=== PATIENT | female | born 2000 | race Hispanic/Latino ===

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

== ENCOUNTER 2020-05-21 20:39 | Observation (INO) | payer OTHER ==
[~2020-05-21] VITALS: Ht 157.5 cm; Wt 74.8 kg
[2020-05-21] MEDS ORDERED: DICYCLOMINE HCL 20 MG/2 ML VIAL IM ONE (21:00)
[2020-05-21] MEDS ORDERED: PANTOPRAZOLE 40 MG 10ML VIAL IV STA (21:00)
[2020-05-21 21:10] LABS: BASOPHILS % 0.3 % (0.0-1.0); EOSINOPHILS # (AUTO) 0.3 (0.0-0.4); HEMATOCRIT 43.1 % (34.2-44.1); HEMOGLOBIN 14.1 g/dL (12.0-16.0); LYMPHOCYTES # (AUTO) 5.1 (1.0-3.2); LYMPHOCYTES % 39.5 % (18.0-39.1); MEAN CORPUSCULAR HEMOGLOBIN 28.8 pg (28-32); MEAN CORPUSCULAR HGB CONC 32.7 g/dL (31-35); MONOCYTES # (AUTO) 0.8 (0.2-0.8); MONOCYTES % 6.3 % (4.4-11.3); NEUTROPHILS # (AUTO) 6.6 (2.1-6.9); NEUTROPHILS % 51.6 % (38.7-80.0); PLATELET COUNT 294 x10e3/uL (140-360); RED CELL DISTRIBUTION WIDTH 13.2 % (11.7-14.4)
[2020-05-21 21:27] LABS: BILIRUBIN,URINE NEGATIVE (NEGATIVE); CLARITY,URINE SL CLOUDY (CLEAR); COLOR,URINE YELLOW (YELLOW); KETONES,URINE NEGATIVE (NEGATIVE); LEUKOCYTE ESTERASE ,URINE NEGATIVE (NEGATIVE); NITRITE,URINE NEGATIVE (NEGATIVE); PROTEIN,URINE DIPSTICK NEGATIVE (NEGATIVE); URINE UROBILINOGEN 0.2 mg/dL (0.2 - 1)
[2020-05-21 21:28] LABS: ALANINE AMINOTRANSFERASE 18 IU/L (0-55); ALBUMIN 4.7 g/dL (3.5-5.0); ALBUMIN/GLOBULIN RATIO 1.6 (0.8-2.0); ALKALINE PHOSPHATASE 92 IU/L (40-150); ANION GAP 13.1 mmol/L (8-16); BLOOD UREA NITROGEN 15 mg/dL (7-26); BUN/CREATININE RATIO 17 (6-25); CARBON DIOXIDE 24 mmol/L (22-29); CHLORIDE 106 mmol/L (98-107); CREATININE, SERUM 0.86 mg/dL (0.57-1.11); EST GLOMERULAR FILTRATION RATE > 60 ML/MIN (60-); GLUCOSE 88 mg/dL (74-118); POTASSIUM 4.1 mmol/L (3.5-5.1); SODIUM 139 mmol/L (136-145)
[2020-05-21 21:34] LABS: BACTERIA,URINE FEW /HPF; EPITHELIAL CELLS,URINE MODERATE /LPF
[2020-05-21 21:37] LABS: AMYLASE 51 U/L (25-125); LIPASE 318 U/L (8-78)
--- NOTE | 2020-05-21 22:15 | Emergency Department Note ---
History of Present Illnes History of Present Illness Chief Complaint: Abdominal Complaints History of Present Illness This is a 19 year old female INTERMITTENT RIGHT FLANK PAIN X1 WEEK; PT SEEN FOR RIGHT FLANK PAIN X1 YEAR AGO AND PT STATES, "WAS TOLD IT WOULD HAVE TO COME OUT EVENTUALLY." PT ATE PORK CHOPS AND MAC/CHEESE THIS EVENING; STATES PAIN 7/10 AT THIS TIME; V/S/S; NAD NOTED; . Historian: Patient Arrival Mode: Car Onset (how long ago): hour(s) (2) Location: UPPER ABD Quality: PAIN Radiation: Reports back Severity: moderate Onset quality: sudden Duration (how long): hour(s) (2) Timing of current episode: intermittent Progression: unchanged Chronicity: recurrent Context: Denies recent illness, Denies recent surgery, Denies trauma/injury Relieving factors: none Exacerbating factors: eating Associated symptoms: Reports denies other symptoms Past Medical/Family History Physician Review I have reviewed the patient's past medical and family history. Any updates have been documented here. Past Medical History Recent Fever: No Clinical Suspicion of Infectio: No New/Unexplained Change in Ment: No Other Medical History: Ovarian cyst Past Surgical History: None Social History Smoking Cessation: Never Smoker Counseling Performed: No Alcohol Use: None Any Illegal Drug Use: No Family History Family history of heart diseas: No Other Last Tetanus: +utd Any Pre-Existing Lines (PICC,: No Review of Systems Review of Systems Constitutional: Reports no symptoms EENTM: Reports no symptoms Cardiovascular: Reports no symptoms Respiratory: Reports no symptoms Gastrointestinal: Reports as per HPI Genitourinary: Reports no symptoms Musculoskeletal: Reports no symptoms Integumentary: Reports no symptoms Neurological: Reports no symptoms Psychological: Reports no symptoms Endocrine: Reports no symptoms Hematological/Lymphatic: Reports no symptoms Physical Exam Related Data Allergies: Coded Allergies: No Known Allergies (Unverified , 01/12/17) Triage Vital Signs Vital Signs Date Time Temp Pulse Resp B/P (MAP) Pulse Ox O2 Delivery O2 Flow Rate FiO2 05/21/20 20:55 99.3 88 17 150/84 98 Room Air Vital signs reviewed: Yes Physical Exam CONSTITUTIONAL Constitutional: Present well-developed, Present well-nourished; Absent distressed HENT HENT: Present normocephalic, Present atraumatic, Present oropharynx clear/moist, Present nose normal HENT L/R: Present left ext ear normal, Present right ext ear normal EYES Eyes: Reports PERRL, Reports conjunctivae normal NECK Neck: Present ROM normal PULMONARY Pulmonary: Present effort normal, Present breath sounds normal CARDIOVASCULAR Cardiovascular: Present regular rhythm, Present heart sounds normal, Present capillary refill normal, Present normal rate GASTROINTESTINAL Abdominal: Present soft, Present bowel sounds normal, Present tender (TENDER EPIGASTRIC AND RUQ) GENITOURINARY Genitourinary: Present exam deferred SKIN Skin: Present warm, Present dry MUSCULOSKELETAL Musculoskeletal: Present ROM normal NEUROLOGICAL Neurological: Present alert, Present oriented x 3, Present no gross motor or sensory deficits PSYCHOLOGICAL Psychological: Present mood/affect normal, Present judgement normal Results Laboratory Result Diagram: 05/21/20 2100 05/21/202099 Laboratory Laboratory Tests Test 05/21/20 21:00 White Blood Count 12.87 x10e3/uL (4.8-10.8) Red Blood Count 4.90 x10e6/uL (3.6-5.1) Hemoglobin 14.1 g/dL (12.0-16.0) Hematocrit 43.1 % (34.2-44.1) Mean Corpuscular Volume 88.0 fL (81-99) Mean Corpuscular Hemoglobin 28.8 pg (28-32) Mean Corpuscular Hemoglobin Concent 32.7 g/dL (31-35) Red Cell Distribution Width 13.2 % (11.7-14.4) Platelet Count 294 x10e3/uL (140-360) Neutrophils (%) (Auto) 51.6 % (38.7-80.0) Lymphocytes (%) (Auto) 39.5 % (18.0-39.1) Monocytes (%) (Auto) 6.3 % (4.4-11.3) Eosinophils (%) (Auto) 2.0 % (0.0-6.0) Basophils (%) (Auto) 0.3 % (0.0-1.0) Neutrophils # (Auto) 6.6 (2.1-6.9) Lymphocytes # (Auto) 5.1 (1.0-3.2) Monocytes # (Auto) 0.8 (0.2-0.8) Eosinophils # (Auto) 0.3 (0.0-0.4) Basophils # (Auto) 0.0 (0.0-0.1) Absolute Immature Granulocyte (auto 0.04 x10e3/uL (0-0.1) Urine Color Yellow (YELLOW) Urine Clarity Sl cloudy (CLEAR) Urine pH 6 (5 - 7) Urine Specific [place] 1.030 (1.010-1.025) Urine Protein Negative (NEGATIVE) Urine Glucose (UA) Negative (NEGATIVE) Urine Ketones Negative (NEGATIVE) Urine Blood Negative (NEGATIVE) Urine Nitrite Negative (NEGATIVE) Urine Bilirubin Negative (NEGATIVE) Urine Urobilinogen 0.2 mg/dL (0.2 - 1) Urine Leukocyte Esterase Negative (NEGATIVE) Urine RBC None /HPF (0-5) Urine WBC None /HPF (0-5) Urine Epithelial Cells Moderate /LPF (NONE) Urine Bacteria Few /HPF (NONE) Sodium Level 139 mmol/L (136-145) Potassium Level 4.1 mmol/L (3.5-5.1) Chloride Level 106 mmol/L (98-107) Carbon Dioxide Level 24 mmol/L (22-29) Anion Gap 13.1 mmol/L (8-16) Blood Urea Nitrogen 15 mg/dL (7-26) Creatinine 0.86 mg/dL (0.57-1.11) Estimat Glomerular Filtration Rate > 60 ML/MIN (60-) BUN/Creatinine Ratio 17 (6-25) Glucose Level 88 mg/dL (74-118) Calcium Level 9.0 mg/dL (8.4-10.2) Total Bilirubin 0.4 mg/dL (0.2-1.2) Aspartate Amino Transf (AST/SGOT) 17 IU/L (5-34) Alanine Aminotransferase (ALT/SGPT) 18 IU/L (0-55) Alkaline Phosphatase 92 IU/L (40-150) Total Protein 7.6 g/dL (6.5-8.1) Albumin 4.7 g/dL (3.5-5.0) Globulin 2.9 g/dL (2.3-3.5) Albumin/Globulin Ratio 1.6 (0.8-2.0) Amylase Level 51 U/L (25-125) Lipase 318 U/L (8-78) Human Chorionic Gonadotropin, Qual Negative (NEGATIVE) Lab results reviewed: Yes Imaging Imaging results reviewed: Yes Impressions Procedure: [id number] US/US GALLBLADDER Exam Date: 05/21/20 Exam Time: 2201 REPORT STATUS: Signed EXAM: Right Upper Quadrant Ultrasound INDICATION: RUQ PAIN COMPARISON: None. TECHNIQUE: Transverse and longitudinal images of the right upper abdomen were obtained. FINDINGS: Liver: Size: 13.7 cm in the right midclavicular line, normal Appearance: Normal echogenicity, smooth contour Mass: No focal masses Gallbladder: Stones/Sludge: Minimal sludge. No discrete stones. Wall: 0.2 cm Appearance: No pericholecystic fluid or hydrops. Sonographic Lopez's Sign: Negative Bile Ducts: Intrahepatic Ducts: No dilatation Extrahepatic Ducts: Common bile duct measures 0.2 cm, no dilatation Pancreas: Visualized portions of the pancreatic head, neck and proximal body are normal. Right Kidney: Size: 10.1 cm Echogenicity: Normal Parenchymal thickness: Normal Collecting system: No hydronephrosis Stones: None Cyst/Mass: None Vessels: Aorta: Visualized portions are normal Inferior Vena Cava: Visualized portions are normal Main portal vein: Normal size and flow direction. Free Fluid: No ascites or pleural effusion IMPRESSION: Minimal gallbladder sludge. No discrete gallstones. No evidence of acute cholecystitis. Signed by: Tika Gomez MD on 05/21/2020 10:59 PM Dictated By: TIKA GOMEZ MD 58 Transcribed By: VALENCIA on 05/21/202258 COPY TO: SHAMIR RODRIGUEZ MD~ Assessment & Plan Medical Decision Making MDM PT WITH UPPER ABD PAIN AFTER EATING AND REPORTED H/O GALLBLADDER PROBLEMS CBC, CMP, AMYLASE, LIPASE, GALL BLADDER ULTRASOUND, UA ORDERED TO EVAL FOR PANCREATITIS, UTI, ELEVATED LFT'S, GALLSTONES, CHOLECYSTITIS PROTONIX 40 MG IV ORDERED BENTYL 20 MG IM ORDERED I SPOKE WITH DR VILLELA AND LEFT A MESSAGE FOR DR JOHNSON Assessment & Plan Final Impression: (1) Pancreatitis (2) Sludge in gallbladder Depart Disposition: ADMITTED Last Vital Signs Date Time Temp Pulse Resp B/P (MAP) Pulse Ox O2 Delivery O2 Flow Rate FiO2 05/21/20 20:55 99.3 88 17 150/84 98 Room Air Home Meds No Active Prescriptions or Reported Meds Medications in the ED Pantoprazole Sodium 40 mg NOW STAT IV Last administered on 05/21/20at 21:29; Admin Dose 40 MG; Start 05/21/20 at 21:00; Stop 05/21/20 at 21:11; Status DC Dicyclomine HCl 20 mg ONCE ONCE IM Last administered on 05/21/20at 21:29; Admin Dose 20 MG; Start 05/21/20 at 21:00; Stop 05/21/20 at 21:02; Status DC SHAMIR RODRIGUEZ MD May 21, 2020 22:15
--- OUTSIDE RECORDS SUMMARY | 2020-05-21 22:27 | XMS REPORT | Continuity of Care Document ---
Author Author [facility] t Organization [facility] Address [address] [place] [address] Phone Unavailable Care Team Providers [facility] Nurse Name Role Phone NO, PCP PCP Unavailable KARMEN RAM APRN Attphys Unavailable Deirdre RODRIGUEZ Attphys Unavailable Payers Payer Name Policy Type Policy Number Effective Date Expiration Date Karl Lawler o [id number] 2018 00:00:00 LUIS Jiménez [facility] Problems Condition Name Condition Details Condition Category Status Onset Date Resolution Date Last Treatment Date Treating Clinician Comments Source History of depression History of depression Problem Resolved [facility] History of COVID-19 virus infection History of COVID-19 virus in fection Problem Resolved [facility] Acute bronchitis due to infection Acute bronchitis due to infect ion Problem Active [facility] Anxiety and depression Anxiety and depression Problem Active [facility] Encounter for control Encounter for control Problem Active [facility] BMI 33.0-33.9,adult BMI 33.0-33.9,adult Problem Active [facility] Allergies, Adverse Reactions, Alerts Allergy Name Allergy Type Status Severity Reaction(s) Onset Date Inacti ve Date Treating Clinician Comments Source NO KNOWN CONTRAST MEDIA ALLERG DA Active U 2008-06-30 00: 00:00 [facility] NO KNOWN OTHER ALLERGIES DA Active U 2008-06-30 00:00:00 [facility] No Known Drug Allergies DA Active U 2008-06-30 00:00:00 [facility] No Known Food Allergies DA Active U 2008-06-30 00:00:00 [facility] Family History Family Member Diagnosis Comments Start Date Stop Date Source Grandmother Family history of diabetes mellitus [facility] Grandmother Family history of High cholesterol [facility] Grandmother Family history of hypertension [facility] Father Family history of alcoholism [facility] Social History Smoking Status Start Date Stop Date Source Never smoked tobacco (finding) U [facility] Medications Ordered Medication Name Filled Medication Name Start Date Stop Da te Current Medication? Ordering Clinician Indication Dosage Frequency Signature (SIG) Comments Components Source Drospirenone-Ethinyl Estradiol 3-0.02 MG Oral Tablet D rospirenone-Ethinyl Estradiol 3-0.02 MG Oral Tablet 2020-03-06 00:00:00 Yes ZHEN RAM GRAIN DRIER 1 QD TAKE 1 TABLET DAILY. [facility] busPIRone HCl - 7.5 MG Oral Tablet busPIRone HCl - 7.5 MG Or al Tablet 2020-03-06 00:00:00 Yes KARMEN RAM GRAIN DRIER 1 TAKE 1 TABLET B EDTIME [facility] Escitalopram Oxalate 10 MG Oral Tablet Escitalopram Oxalate 10 MG Oral Tablet 2020-02-21 00:00:00 Yes KARMEN RAM GRAIN DRIER 1 QD TAKE 1 TABLET DAILY. [facility] Vital Signs Vital Name Observation Time Observation Value Comments Source Systolic blood pressure 2020-03-06 12:19:00 132 mm[Hg] Loca tion: LUE; Position: Sitting [facility] Diastolic blood pressure 2020-03-06 12:19:00 78 mm[Hg] Loc ation: LUE; Position: Sitting [facility] Body height 2020-03-06 12:19:00 62 [in_us] [facility] Weight 2020-03-06 12:19:00 185 [lb_av] [facility] Body mass index (BMI) [Ratio] 2020-03-06 12:19:00 33.84 kg/m2 [facility] Body temperature 2020-03-06 12:19:00 98.3 [degF] Method: Temporal [facility] Heart Rate 2020-03-06 12:19:00 78 /min [facility] Respiratory rate 2020-03-06 12:19:00 16 /min [facility] Systolic blood pressure 2020-02-21 10:11:00 129 mm[Hg] Loca tion: LUE; Position: Sitting [facility] Diastolic blood pressure 2020-02-21 10:11:00 85 mm[Hg] Loc ation: LUE; Position: Sitting [facility] Body height 2020-02-21 10:11:00 62 [in_us] [facility] Weight 2020-02-21 10:11:00 188 [lb_av] [facility] Body mass index (BMI) [Ratio] 2020-02-21 10:11:00 34.39 kg/m2 [facility] Body temperature 2020-02-21 10:11:00 98.4 [degF] Method: Temporal [facility] Heart Rate 2020-02-21 10:11:00 89 /min [facility] Respiratory rate 2020-02-21 10:11:00 16 /min [facility] Procedures Procedure Date / Time Performed Performing Clinician Sour e [QL] LIPID PANEL 2020-02-21 00:00:00 [facility] [QL] CBC (INCLUDES DIFF/PLT) 2020-02-21 00:00:00 [facility] [QL] CMP W/EGFR 2020-02-21 00:00:00 [facility] [QL] TSH, 3RD GENERATION W/REFLEX TO FT4 2020-02-21 00:00:00 [facility] [QL] URINALYSIS, COMPLETE 2020-02-21 00:00:00 [facility] 2 views [id number] 2020-02-21 00:00:00 [facility] Encounters Start Date/Time End Date/Time Encounter Type Admission Type [facility] Facility Care Department Encounter ID Source 2020-03-06 12:30:00 2020-03-06 12:30:00 Appointment; IGNACIO RAM APRN HOANG, CHRISTINA, APRN [facility] [id number] [facility] 2020-02-21 10:00:00 2020-02-21 10:00:00 Appointment; RAMIGNACIO APRN HOANG, CHRISTINA, APRN [facility] [address] [id number] [address] [facility] 2019-03-31 20:06:00 2019-04-01 00:22:00 Departed Emergency Room 1 SHAMIR RODRIGUEZ [facility] [id number] [facility] Results Test Description Test Time Test Comments Results Result Comments Source [QL] LIPID PANEL 2020-02-27 13:06:00 Test Item CHOLESTEROL, TOTAL; Above High Threshold (test code = 2093-3) 192 m g/dl <170 HDL CHOLESTEROL; Normal (test code = 2085-9) 46 mg/dl >45 N TRIGLYCERIDES; Above High Threshold (test code = 2571-8) 94 mg/dl <90 LDL-CHOLESTEROL; Above High Threshold (test code = 40791-9) 126 {MG/DL CODI} <110 LDL-C is now calculated felix casarez the Yvan-Fadumo calculation, which is a validated novel method providing better accuracy than the Friedewald equation in the estimation of LDL-C. Yvan SS et al. MARGA. 2013;310(19): 7813-2955 (http://education.EzFlop - A First of Its Kind Flip Flop.nediyor.com/faq/THM371) CHOL/HDLC RATIO (test code = CHOL/HDLC RATIO) 4.2 {CALC} <5.0 N NON HDL CHOLESTEROL (test code = NON HDL CHOLESTEROL) 146 {MG/DL C AL} <120 For patients with diabetes plus 1 major ASCVD risk factor, treating to a non-HDL-C goal of <100 mg/dL (LDL-C of <70 mg/dL) is considered a therapeutic option. [facility][QL] CMP [id number] 13:06:00* Test Item Value Reference Range Interpretation Comments GLUCOSE; Normal (test code = 1547-9) 82 mg/dl 65-99 N Fasting reference interval UREA NITROGEN (BUN) (test code = UREA NITROGEN (BUN)) 14 mg/dl 7-20 N CREATININE (test code = CREATININE) 0.79 mg/dl 0.50-1.00 N eGFR NON-AFR. TUNISIAN (test code = eGFR NON-AFR. TUNISIAN) 109 {ML/MIN/1.7} > OR = 60 N eGFR (test code = eGFR ) 12 6 {ML/MIN/1.7} > OR = 60 N BUN/CREATININE RATIO (test code = BUN/CREATININE RATIO) NOT APPLICA BLE 6-22 SODIUM (test code = SODIUM) 139 mmol/L 135-146 N POTASSIUM (test code = POTASSIUM) 4.5 mmol/L 3.8-5.1 N CHLORIDE (test code = CHLORIDE) 103 mmol/L 98-110 N CARBON DIOXIDE (test code = CARBON DIOXIDE) 27 mmol/L 20-32 N CALCIUM (test code = CALCIUM) 9.7 mg/dl 8.9-10.4 N PROTEIN, TOTAL (test code = PROTEIN, TOTAL) 7.2 g/dl 6.3-8.2 N ALBUMIN (test code = ALBUMIN) 4.4 g/dl 3.6-5.1 N GLOBULIN (test code = GLOBULIN) 2.8 {G/DL CALC} 2.0-3.8 N ALBUMIN/GLOBULIN RATIO (test code = ALBUMIN/GLOBULIN RATIO) 1.6 {CALC} 1.0-2.5 N BILIRUBIN, TOTAL; Normal (test code = 39057-4) 0.5 mg/dl 0.2-1.1 N ALKALINE PHOSPHATASE (test code = ALKALINE PHOSPHATASE) 80 u/l 36-128 N AST; Normal (test code = 1916-6) 15 u/l 12-32 N ALT; Normal (test code = 1742-6) 15 u/l 5-32 N [facility][] URINALYSIS, [id number] 13:06:00* Test Item Value Reference Range Interpretation Comments COLOR; Normal (test code = 5778-6) YELLOW YELLOW N APPEARANCE (test code = APPEARANCE) CLEAR CLEAR N SPECIFIC GRAVITY; Normal (test code = 2965-2) 1.021 1.001-1. 035 N PH; Normal (test code = 2756-5) 7.0 5.0-8.0 N GLUCOSE; Normal (test code = 1547-9) NEGATIVE NEGATIVE N BILIRUBIN; Normal (test code = 04022-9) NEGATIVE NEGATIVE N KETONES; Normal (test code = 28109-1) NEGATIVE NEGATIVE N OCCULT BLOOD; Normal (test code = 67773-6) NEGATIVE NEGATIVE N PROTEIN; Normal (test code = 19254-8) NEGATIVE NEGATIVE N NITRITE; Normal (test code = 92402-9) NEGATIVE NEGATIVE N LEUKOCYTE ESTERASE (test code = LEUKOCYTE ESTERASE) NEGATIVE NE GATIVE N WBC; Normal (test code = 6690-2) 0-5 < OR = 5 N RBC; Normal (test code = 789-8) NONE SEEN < OR = 2 N SQUAMOUS EPITHELIAL CELLS; Abnormal (test code = 88169-2) > OR = 28 < OR = 5 A BACTERIA; Normal (test code = 630-4) NONE SEEN NONE SEEN N HYALINE CAST; Abnormal (test code = 64753-3) 0-5 NONE SEEN A [facility][QL] CBC (INCLUDES DIFF/PLT)2020-02-27 13:06:00* Test Item Value Reference Range Interpretation Comments WHITE BLOOD CELL COUNT (test code = WHITE BLOOD CELL COUNT) 10.5 {Thousand/u} 3.8-10.8 N RED BLOOD CELL COUNT (test code = RED BLOOD CELL COUNT) 4.92 {Million/uL} 3.80-5.10 N HEMOGLOBIN; Normal (test code = 37175-9) 14.3 g/dl 11.7-15.5 N HEMATOCRIT; Normal (test code = 4544-3) 42.3 % 35.0-45.0 N MCV; Normal (test code = 787-2) 86.0 fL 80.0-100.0 N MCHC; Normal (test code = 80054-8) 33.8 g/dl 32.0-36.0 N RDW; Normal (test code = 788-0) 12.7 % 11.0-15.0 N PLATELET COUNT; Normal (test code = 777-3) 303 {Thousand/u} 140-400 N MPV; Normal (test code = 52125-6) 10.4 fL 7.5-12.5 N ABSOLUTE NEUTROPHILS (test code = ABSOLUTE NEUTROPHILS) 6878 {cells/uL} 5560-9960 N ABSOLUTE LYMPHOCYTES (test code = ABSOLUTE LYMPHOCYTES) 3077 {cells/uL} 850-3900 N ABSOLUTE MONOCYTES (test code = ABSOLUTE MONOCYTES) 410 {cells/uL} 200-950 N ABSOLUTE EOSINOPHILS (test code = ABSOLUTE EOSINOPHILS) 105 {cells/ uL} 15-500 N ABSOLUTE BASOPHILS (test code = ABSOLUTE BASOPHILS) 32 {cells/uL} 0 -200 N NEUTROPHILS (test code = NEUTROPHILS) 65.5 % N LYMPHOCYTES (test code = LYMPHOCYTES) 29.3 % N MONOCYTES; Normal (test code = 36395-9) 3.9 % N EOSINOPHILS; Normal (test code = 32466-6) 1.0 % N BASOPHILS; Normal (test code = 22852-4) 0.3 % N [facility][QL] TSH, 3RD GENERATION W/REFLEX TO [id number] 13:06:00* Test Item Value Reference Range Interpretation Comments TSH, 3RD GENERATION W/REFLEX TO FT4 (tabatha t code = TSH, 3RD GENERATION W/REFLEX TO FT4) 2.76 {MIU/L} N Reference Range 1-19 Years 0.50- 4.30 Ranges First trimester 0.26-2.66 Second trimester 0.55-2.73 Third trimester 0.43-2.91 [facility] views [id number] 12:49:00EXAM: XR CHEST 2 VIEWSDATE: 02/27/2020 12:47 CDTINDICATION: - J20.8 Acute bronchitis due to other specified organismsCOMPARISON: None.TECHNIQUE: PA and lateral chest radiographs.FINDINGS:Lines, tubes and hardware: None.Lungs and pleura: The lungs are clear. The costophrenic sulci are sharp withouteffusion. No pneumot horax is identified.Heart and mediastinum: The heart size is normal. The mediast inal contours arenormal.Bones, soft tissues: No acute abnormality.IMPRESSION: 1. No acute abnormality.--Read by: Brett Beebe MDDictated Date/time: 02/27/20 13:17Electronically Signed by: Brett Beebe MD 02/26/2013:18[facility]- ABDOM[facility] COMPLETE 2019-05-24 11:44:00 Name: MARY GLEZ [facility] : 2000 Age/S: 18 / F [address] Unit #: [id number] Loc: [place] [address] Phys: Taj Hardin MD Acct: [id number] Dis Date: Status: REG CLI PHONE #: [phone] Exam Date: 05/24/2019 1026 FAX #: [phone] Reason: UPPER ABD PAIN EXAMS: CPT CODE: [id number] US ABDOMEN COMPLETE 41142 REASON FOR EXAM: UPPER ABD PAIN EXAM ORDER DATE: 05/24/2019 9:57 AM Attending MLandon.: Taj Hardin MD PROCEDURE: - US ABDOMEN COMPLETE Technique: Grayscale and color Doppler images of the abdomen. Comparison study: None FINDINGS: Aorta and IVC: Patent and grossly normal in caliber. Liver: Size: 13.1 cm craniocaudally Parenchyma and contour: Smooth contour. Normal echogenicity. Cysts and/or masses: None. Intrahepatic bile ducts: No intrahepatic biliary ductal dilation Common bile duct: 2.2 mm in diameter. No echogenic filling defects in visualized duct. Gallbladder: Stones/sludge: No intraluminal stones or sludge. Wall: 6.9 mm in thickness. No discontinuity. No polyps. No pericholecystic fluid. No hyperemia. Sonographic Lopez's sign: Negative Portal vein: Portal vein caliber is within normal limits. Portal vein is patent with hepatopetal flow. Pancreas: Incompletely visualized. However the visualized portions are grossly within normal limits. Right kidney: parenchyma echogenicity: Normal echogenicity size: 11.0 x 4.3 x 4.2 cm stones: none cysts/masses: none hydronephrosis: none PAGE 1 Signed Report (CONTINUED) Name: MARY GLEZ [facility] : 2000 Age/S: 18 / F [address] Unit #: [id number] Loc: [place] [address] Phys: Taj Hardin MD Acct: [id number] Dis Date: Status: REG CLI PHONE #: [phone] Exam Date: 05/24/2019 1025 FAX #: [phone] Reason: UPPER ABD PAIN EXAMS: CPT CODE: [id number] US ABDOMEN COMPLETE 52695 <Continued> Left kidney: parenchyma echogenicity: Normal echogenicity s ize: 10.9 x 5.2 x 5.6 cm stones: none cysts/masses: none hydr onephrosis: none Spleen: size: 11.6 x 4.4 x 4.[address] sts/masses: Parenchyma is sonographically unremarkable. Ascites/p leural effusions: None IMPRESSION: No sonogra phic evidence of acute cholecystitis (negative sonographic Lopez's sign ). The gallbladder is contracted with marked wall thickening which may b e seen with chronic cholecystitis. Nuclear medicine scan can provide fur ther assessment if clinically warranted. Remainder of the scanned portio n of the abdomen is sonographically unremarkable. Electronic ally Signed by Calvin Baron MD on 05/24/2019 at 1144 Repo rted and signed by: Calvin Baron MD CC: Taj Dia Technologist: Carina Valiente RDMS Trnscb Date/Time: 05/24/2019 (2738) [email or web address] Orig Print D/T: S: 05/24/2019 (3557) Probe: PAGE 2 Signed Report ANKLE 3 + VIEWS [id number] 00:21:00 [place] [address] Patient Name: MARY GLEZ MR #: [id number] : 2000 Age/Sex: 18/F Req #: [id number] Adm Physician: Ordered by: SHAMIR RODRIGUEZ MD Report #: [id number] Location: ER Room/Bed: Procedure: [id number] DX/ANKLE 3 + VIEWS RIGHT Exam Date: 03/31/19 Exam Time: 2319 REPORT STATUS: Si gned ANKLE 3 + VIEWS RIGHT - 3 views HISTORY: Pain COMPARISON: None a vailable. FINDINGS: Bones: No acute displaced fracture. Osseou s alignment is within normal limits. Joints: The joint spaces are well-ma intained. Soft tissues: The soft tissues appear unremarkable. IMP RESSION: No acute radiographic abnormality. Signed by: Dr. Wander Chavez MD on 04/01/2019 12:22 AM Dictated By: WANDER CHAVEZ MD 002 Transcribed By: VALENCIA on 9 21 COPY TO: SHAMIR RODRIGUEZ MD FOOT RIGHT COMPLETE 2019-03-31 22:47:00 [place] [address] Patient Name: MARY GLEZ MR #: [id number] : 2000 Age/Sex: 18/F Req #: [id number] Adm Physician: Ordered by: SHAMIR RODRIGUEZ MD Report #: [id number] Location: ER Room/Bed: Procedure: [id number] DX/FOOT RIGHT COMPLETE Exam Date: 03/31/19 Exam Time: 2149 REPORT STATUS: Sign ed FOOT RIGHT COMPLETE - 3 views HISTORY: Pain COMPARISON: None avail able. FINDINGS: Bones: No acute displaced fracture. Osseous al ignment is within normal limits. Joints: The joint spaces are well-mainta ined. Soft tissues: The soft tissues appear unremarkable. IMPRESS ION: No acute radiographic abnormality. Signed by: Dr. Wander Chavez MD on 03/31/2019 10:48 PM Dictated By: WANDER CHAVEZ MD Electronically Sign ed By: WANDER CHAVEZ MD on 03/31/19 2248 Transcribed By: VALENCIA on 03/31/19 48 COPY TO: SHAMIR RDORIGUEZ MD
--- NOTE | 2020-05-21 23:03 | Diagnostic Imaging Report ---
EXAM: Right Upper Quadrant Ultrasound INDICATION: RUQ PAIN COMPARISON: None. TECHNIQUE: Transverse and longitudinal images of the right upper abdomen were obtained. FINDINGS: Liver: Size: 13.7 cm in the right midclavicular line, normal Appearance: Normal echogenicity, smooth contour Mass: No focal masses Gallbladder: Stones/Sludge: Minimal sludge. No discrete stones. Wall: 0.2 cm Appearance: No pericholecystic fluid or hydrops. Sonographic Lopez's Sign: Negative Bile Ducts: Intrahepatic Ducts: No dilatation Extrahepatic Ducts: Common bile duct measures 0.2 cm, no dilatation Pancreas: Visualized portions of the pancreatic head, neck and proximal body are normal. Right Kidney: Size: 10.1 cm Echogenicity: Normal Parenchymal thickness: Normal Collecting system: No hydronephrosis Stones: None Cyst/Mass: None Vessels: Aorta: Visualized portions are normal Inferior Vena Cava: Visualized portions are normal Main portal vein: Normal size and flow direction. Free Fluid: No ascites or pleural effusion IMPRESSION: Minimal gallbladder sludge. No discrete gallstones. No evidence of acute cholecystitis. Signed by: Napoleon Grissom MD on 05/21/2020 10:59 PM
[2020-05-21] MEDS ORDERED: SODIUM CHLORIDE 0.9% 1000ML 2,000 ML ONE (23:27)
[2020-05-21] MEDS ORDERED: MORPHINE SULFATE 2 MG/ML SYR 1ML IV PRN (23:30)
[2020-05-21] MEDS ORDERED: SODIUM CHLORIDE 0.9% 1000ML 1,000 ML IV ONE (23:30)
[2020-05-21] MEDS ORDERED: ONDANSETRON HCL INJ 2MG/ML 2ML 2 MG/ML VIAL IV PRN (23:30)
[2020-05-22] MEDS: SODIUM CHLORIDE 0.9% 1000ML 1,000 ML IV SCH ×2 (00:14→04:24)
[2020-05-22 05:35] LABS: BASOPHILS % 0.3 % (0.0-1.0); EOSINOPHILS # (AUTO) 0.2 (0.0-0.4); EOSINOPHILS % 2.1 % (0.0-6.0); HEMATOCRIT 36.2 % (34.2-44.1); LYMPHOCYTES # (AUTO) 4.4 (1.0-3.2); LYMPHOCYTES % 40.8 % (18.0-39.1); MEAN CORPUSCULAR HEMOGLOBIN 28.7 pg (28-32); MEAN CORPUSCULAR HGB CONC 33.1 g/dL (31-35); MEAN CORPUSCULAR VOLUME 86.6 fL (81-99); MONOCYTES # (AUTO) 0.7 (0.2-0.8); MONOCYTES % 6.1 % (4.4-11.3); NEUTROPHILS # (AUTO) 5.5 (2.1-6.9); NEUTROPHILS % 50.3 % (38.7-80.0); PLATELET COUNT 244 x10e3/uL (140-360); RED BLOOD COUNT 4.18 x10e6/uL (3.6-5.1); RED CELL DISTRIBUTION WIDTH 13.2 % (11.7-14.4)
--- OUTSIDE RECORDS SUMMARY | 2020-05-22 05:40 | XMS REPORT | Continuity of Care Document ---
Author Author [facility] t Organization [facility] Address [address] [place] [address] Phone Unavailable Care Team Providers Care Chemic Mangler Name Role Phone NO, PCP PCP Unavailable Deirdre RODRIGUEZ Attphys Unavailable KARMEN RAM APRN Attphys Unavailable Payers Payer Name Policy Type Policy Number Effective Date Expiration Date Karl Lawler o [id number] 2018 00:00:00 LUIS Jiménez [facility] Problems Condition Name Condition Details Condition Category Status Onset Date Resolution Date Last Treatment Date Treating Clinician Comments Source History of depression History of depression Problem Resolved [facility] History of COVID-19 virus infection History of COVID-19 virus in fection Problem Resolved [facility] Acute bronchitis due to infection Acute bronchitis due to infect ion Problem Active [facility] Anxiety and depression Anxiety and depression Problem Active [facility] Encounter for control Encounter for control Problem Active [facility] BMI 33.0-33.9,adult BMI 33.0-33.9,adult Problem Active [facility] Allergies, Adverse Reactions, Alerts Allergy Name Allergy Type Status Severity Reaction(s) Onset Date Inacti ve Date Treating Clinician Comments Source NO KNOWN CONTRAST MEDIA ALLERG DA Active U 2008-06-30 00: 00:00 [facility] NO KNOWN OTHER ALLERGIES DA Active U 2008-06-30 00:00:00 [facility] No Known Drug Allergies DA Active U 2008-06-30 00:00:00 [facility] No Known Food Allergies DA Active U 2008-06-30 00:00:00 [facility] Family History Family Member Diagnosis Comments Start Date Stop Date Source Grandmother Family history of diabetes mellitus [facility] Grandmother Family history of High cholesterol [facility] Grandmother Family history of hypertension [facility] Father Family history of alcoholism [facility] Social History Smoking Status Start Date Stop Date Source Never smoked tobacco (finding) U [facility] Medications Ordered Medication Name Filled Medication Name Start Date Stop Da te Current Medication? Ordering Clinician Indication Dosage Frequency Signature (SIG) Comments Components Source Drospirenone-Ethinyl Estradiol 3-0.02 MG Oral Tablet D rospirenone-Ethinyl Estradiol 3-0.02 MG Oral Tablet 2020-03-06 00:00:00 Yes ZHEN RAM FIELD INSTALLATION TECHNICIAN 1 QD TAKE 1 TABLET DAILY. [facility] busPIRone HCl - 7.5 MG Oral Tablet busPIRone HCl - 7.5 MG Or al Tablet 2020-03-06 00:00:00 Yes KARMEN RAM FIELD INSTALLATION TECHNICIAN 1 TAKE 1 TABLET B EDTIME [facility] Escitalopram Oxalate 10 MG Oral Tablet Escitalopram Oxalate 10 MG Oral Tablet 2020-02-21 00:00:00 Yes KARMEN RAM FIELD INSTALLATION TECHNICIAN 1 QD TAKE 1 TABLET DAILY. [facility] Vital Signs Vital Name Observation Time Observation Value Comments Source Systolic blood pressure 2020-03-06 12:19:00 132 mm[Hg] Loca tion: LUE; Position: Sitting [facility] Diastolic blood pressure 2020-03-06 12:19:00 78 mm[Hg] Loc ation: LUE; Position: Sitting [facility] Body height 2020-03-06 12:19:00 62 [in_us] [facility] Weight 2020-03-06 12:19:00 185 [lb_av] [facility] Body mass index (BMI) [Ratio] 2020-03-06 12:19:00 33.84 kg/m2 [facility] Body temperature 2020-03-06 12:19:00 98.3 [degF] Method: Temporal [facility] Heart Rate 2020-03-06 12:19:00 78 /min [facility] Respiratory rate 2020-03-06 12:19:00 16 /min [facility] Systolic blood pressure 2020-02-21 10:11:00 129 mm[Hg] Loca tion: LUE; Position: Sitting [facility] Diastolic blood pressure 2020-02-21 10:11:00 85 mm[Hg] Loc ation: LUE; Position: Sitting [facility] Body height 2020-02-21 10:11:00 62 [in_us] [facility] Weight 2020-02-21 10:11:00 188 [lb_av] [facility] Body mass index (BMI) [Ratio] 2020-02-21 10:11:00 34.39 kg/m2 [facility] Body temperature 2020-02-21 10:11:00 98.4 [degF] Method: Temporal [facility] Heart Rate 2020-02-21 10:11:00 89 /min [facility] Respiratory rate 2020-02-21 10:11:00 16 /min [facility] Procedures Procedure Date / Time Performed Performing Clinician Sour e [QL] LIPID PANEL 2020-02-21 00:00:00 [facility] [QL] CBC (INCLUDES DIFF/PLT) 2020-02-21 00:00:00 [facility] [QL] CMP W/EGFR 2020-02-21 00:00:00 [facility] [QL] TSH, 3RD GENERATION W/REFLEX TO FT4 2020-02-21 00:00:00 [facility] [QL] URINALYSIS, COMPLETE 2020-02-21 [facility]:00:[facility] views [id number] 2020-02-21 00:00[facility]00 [facility] En[facility] Start Date/Time End Date/Time Encounter Type Admission Type [facility] Care Facility Care Department Encounter ID Source 2020-03-06 12:30:00 2020-03-06 12:30:00 Appointment; IGNACIO RAM APRN HOANG, CHRISTINA, APRN [facility] [id number] [facility] 2020-02-21 10:00:00 2020-02-21 10:00:00 Appointment; RAM, ANITRA RAMIREZ CHRISTINA, APRN [facility], [address] [id number] [facility] 2019-03-31 20:06:00 2019-04-01 00:22:00 Departed Emergency Room [address] [facility] [id number] [facility] Results Test Description Test Time Test Comments Results Result Comments Source US GALLBLADDER 2020-05-21 22:56:00 [facility] [address] [address] Patient Name: MARY GLEZ MR #: [id number] : 2000 Age/Sex: 19/F Req #: [id number] Adm Physician: Ordered by: SHAMIR RODRIGUEZ MD Report #: [id number] Location: ER Room/Bed: Procedure: [id number] US/US GALLBLADDER Exam Date: 05/21/20 Exam Time: 2201 REPORT STATUS: Signed EXAM: Right Upper Quadrant Ultrasound INDICATION: RUQ PAIN COMPARISON: None. TECHNIQUE: Transverse and longitudinal images of the right upper abdomen were obtained. FINDINGS: Liver: Size: 13.7 cm in the right midclavicular line, normal Appearance: Normal echogenicity, smooth contour Mass: No focal masses Gallbladder: Stones/Sludge: Minimal sludge. No discrete stones. Wall: 0.2 cm Appearance: No pericholecystic fluid or hydrops. Sonographic Lopez's Sign: Negative Bile Ducts: Intrahepatic Ducts: No dilatation Extrahepatic Ducts: Common bile duct measures 0.2 cm, no dilatation Pancreas: Visualized portions of the pancreatic head, neck and proximal body are normal. Right Kidney: Size: 10.1 cm Echogenicity: Normal Parenchymal thickness: Normal Collecting system: No hydronephrosis Stones: None Cyst/Mass: None Vessels: Aorta: Visualized portions are normal Inferior Vena Cava: Visualized portions are normal Main portal vein: Normal size and flow direction. Free Fluid: No ascites or pleural effusion IMPRESSION: Minimal gallbladder sludge. No discrete gallstones. No evidence of acute cholecystitis. Signed by: Tika Grissom MD on 05/21/2020 10:59 PM Dictated By: TIKA GRISSOM MD 58 Transcribed By: VALENCIA on 05/21/202258 COPY TO: SHAMIR RODRIGUEZ MD [QL] LIPID PANEL 2020-02-27 13:06:00 Test Item CHOLESTEROL, TOTAL; Above High Threshold (test code = 2093-3) 192 m g/dl <170 HDL CHOLESTEROL; Normal (test code = 2085-9) 46 mg/dl >45 N TRIGLYCERIDES; Above High Threshold (test code = 2571-8) 94 mg/dl <90 LDL-CHOLESTEROL; Above High Threshold (test code = 81769-9) 126 {MG/DL CODI} <110 LDL-C is now calculated felix casarez the Yvan-Thorne calculation, which is a validated novel method providing better accuracy than the Friedewald equation in the estimation of LDL-C. Yvan SS et al. MARGA. 2013;310(19): 0211-4305 (http://education.Jumia.com/faq/JKV287) CHOL/HDLC RATIO (test code = CHOL/HDLC RATIO) 4.2 {CALC} <5.0 N NON HDL CHOLESTEROL (test code = NON HDL CHOLESTEROL) 146 {MG/DL C AL} <120 For patients with diabetes plus 1 major ASCVD risk factor, treating to a non-HDL-C goal of <100 mg/dL (LDL-C of <70 mg/dL) is considered a therapeutic option. [facility][QL] CMP [id number] 13:06:00* Test Item Value Reference Range Interpretation Comments GLUCOSE; Normal (test code = 1547-9) 82 mg/dl 65-99 N Fasting reference interval UREA NITROGEN (BUN) (test code = UREA NITROGEN (BUN)) 14 mg/dl 7-20 N CREATININE (test code = CREATININE) 0.79 mg/dl 0.50-1.00 N eGFR NON-AFR. AFGHAN (test code = eGFR NON-AFR. AFGHAN) 109 {ML/MIN/1.7} > OR = 60 N [...] N BILIRUBIN, TOTAL; Normal (test code = 61371-1) 0.5 mg/dl 0.2-1.1 N ALKALINE PHOSPHATASE (test code = ALKALINE PHOSPHATASE) 80 u/l 36-128 N AST; Normal (test code = 1916-6) 15 u/l 12-32 N ALT; Normal (test code = 1742-6) 15 u/l 5-32 N [facility][] URINALYSIS, [id number] 13:06:00* Test Item Value Reference Range Interpretation Comments COLOR; Normal (test code = 5778-6) YELLOW YELLOW N APPEARANCE (test code = APPEARANCE) CLEAR CLEAR N SPECIFIC GRAVITY; Normal (test code = 2965-2) 1.021 1.001-1. 035 N PH; Normal (test code = 2756-5) 7.0 5.0-8.0 N GLUCOSE; Normal (test code = 1547-9) NEGATIVE NEGATIVE N BILIRUBIN; Normal (test code = 78416-8) NEGATIVE NEGATIVE N KETONES; Normal (test code = 93462-6) NEGATIVE NEGATIVE N OCCULT BLOOD; Normal (test code = 79775-7) NEGATIVE NEGATIVE N PROTEIN; Normal (test code = 63544-0) NEGATIVE NEGATIVE N NITRITE; Normal (test code = 49021-2) NEGATIVE NEGATIVE N LEUKOCYTE ESTERASE (test code = LEUKOCYTE ESTERASE) NEGATIVE NE GATIVE N WBC; Normal (test code = 6690-2) 0-5 < OR = 5 N RBC; Normal (test code = 789-8) NONE SEEN < OR = 2 N SQUAMOUS EPITHELIAL CELLS; Abnormal (test code = 71294-4) > OR = 28 < OR = 5 A BACTERIA; Normal (test code = 630-4) NONE SEEN NONE SEEN N HYALINE CAST; Abnormal (test code = 97458-7) 0-5 NONE SEEN A [facility][QL] CBC (INCLUDES DIFF/PLT)2020-02-27 13:06:00* Test Item Value Reference Range Interpretation Comments WHITE BLOOD CELL COUNT (test code = WHITE BLOOD CELL COUNT) 10.5 {Thousand/u} 3.8-10.8 N RED BLOOD CELL COUNT (test code = RED BLOOD CELL COUNT) 4.92 {Million/uL} 3.80-5.10 N HEMOGLOBIN; Normal (test code = 27452-0) 14.3 g/dl 11.7-15.5 N HEMATOCRIT; Normal (test code = 4544-3) 42.3 % 35.0-45.0 N MCV; Normal (test code = 787-2) 86.0 fL 80.0-100.0 N MCHC; Normal (test code = 41712-5) 33.8 g/dl 32.0-36.0 N RDW; Normal (test code = 788-0) 12.7 % 11.0-15.0 N PLATELET COUNT; Normal (test code = 777-3) 303 {Thousand/u} 140-400 N MPV; Normal (test code = 73628-5) 10.4 fL 7.5-12.5 N ABSOLUTE NEUTROPHILS (test code = ABSOLUTE NEUTROPHILS) 6878 {cells/uL} 4444-0484 N ABSOLUTE LYMPHOCYTES (test code = ABSOLUTE [...] % N MONOCYTES; Normal (test code = 42897-1) 3.9 % N EOSINOPHILS; Normal (test code = 91537-0) 1.0 % N BASOPHILS; Normal (test code = 51912-7) 0.3 % N [facility][QL] TSH, 3RD GENERATION W/REFLEX TO [id number] 13:06:00* Test Item Value Reference Range Interpretation Comments TSH, 3RD GENERATION W/REFLEX TO FT4 (tabatha t code = TSH, 3RD GENERATION W/REFLEX TO FT4) 2.76 {MIU/L} N Reference Range 1-19 Years 0.50- 4.30 Ranges First trimester 0.26-2.66 Second trimester 0.55-2.73 Third trimester 0.43-2.91 [facility] views [id number] 12:49:00EXAM: XR CHEST 2 VIEWSDATE: 02/27/2020 12:47 [...] 13:17Electronically Signed by: Brett Beebe MD 02/26/2013:18[facility] COMPLETE 2019-05-24 11:44:00 Name: MARY GLEZ [facility] : 2000 Age/S: 18 / F [address] [facility] Unit #: [id number] Loc: [place] [address] Phys: Taj Hardin MD Acct: [id number] Dis Date: Status: REG CLI PHONE #: [phone] Exam Date: 05/24/2019 1025 FAX #: [phone] Reason: UPPER ABD PAIN EXAMS: CPT CODE: [id number] US ABDOMEN COMPLETE 69722 REASON FOR EXAM: UPPER ABD PAIN EXAM ORDER DATE: 05/24/2019 9:57 AM Attending M.D.: Taj Hardin MD PROCEDURE: - US ABDOMEN [...] 1 Signed Report (CONTINUED) Name: MARY GLEZ [facility] : 2000 Age/S: 18 / F [address] [facility] Unit #: [id number] Loc: [place] [address] Phys: Taj Hardin MD Acct: [id number] Dis Date: Status: REG CLI PHONE #: [phone] Exam Date: 05/24/2019 1025 FAX #: [phone] Reason: UPPER ABD PAIN EXAMS: CPT CODE: [id number] US ABDOMEN COMPLETE 41106 <Continued> Left kidney: parenchyma echogenicity: Normal echogenicity [...] Technologist: Carina Valiente RDMS Trnscb Date/Time: 05/24/2019 (6840) [email or web address] Orig Print D/T: S: 05/24/2019 (9752) Probe: PAGE 2 Signed Report ANKLE 3 + VIEWS [id number] 00:21:[address] [address] Patient Name: MARY GLEZ MR #: [id number] : 2000 Age/Sex: 18/F Req #: [id number] Adm Physician: Ordered by: SHAMIR RODRIGUEZ MD Report #: [id number] Location: ER Room/Bed: Procedure: [id number] DX/ANKLE 3 + VIEWS RIGHT Exam Date: 03/31/19 Exam Time: 2320 REPORT STATUS: Si gned ANKLE 3 + [...] 12:22 AM Dictated By: WANDER CHAVEZ MD 0022 Transcribed By: VALENCIA on 9 0022 COPY TO: SHAMIR RODRIGUEZ MD FOOT RIGHT COMPLETE 2019-03-31 22:47:00 [address] [address] Patient Name: MARY GLEZ MR #: [id number] : 2000 Age/Sex: 18/F Req #: [id number] Adm Physician: Ordered by: SHAMIR RODRIGUEZ MD Report #: [id number] Location: ER Room/Bed: Procedure: [id number] DX/FOOT RIGHT COMPLETE Exam Date: 03/31/19 Exam Time: 2150 REPORT STATUS: Sign ed FOOT RIGHT COMPLETE [...] 03/31/19 2248 Transcribed By: VALENCIA on 03/31/19 22 48 COPY TO: SHAMIR RODRIGUEZ MD
--- NOTE | 2020-05-22 06:09 | NUR ---
H&P cc: abdominal pain HPI: 19yoF, PCP , developed abdominal pain, found to have acute pancreatitis and gall bladder sludge. No etoh; Pain ongoing for 1 week; Some nausea and diarrhea for 2 days; no fever. PMH: obesity, HLD, CHON PSHx: none ALlergies; see emr FH/SH: single; no cigs; no etoh. MEds; see MAR ROS: no CHRISTY/cp/sob/skin rash/dizziness/vision changs/confusion/diarrhea/focal limb weakness v/s revd PE tired appearing anicteric ns1s2 mod bs soft; EQUIVOCAL GONSALEZ'S SIGN; RUQ tender no edema/skin dry flat affect a&ox3; labs/meds revd A/P: 19yoF Acute pancreatitis- IVF Gall bladder disease/sludge- Equivocal Gonsalez's sign; check MRCP Obesity- screen for DM; reduce portion sizes BMI 30 - as above Prop: scd; pepcid dipso: f/u GI; f/u MRCP KAZ VILLELA MD, PHD.
[2020-05-22 06:10] LABS: ALANINE AMINOTRANSFERASE 14 IU/L (0-55); ALBUMIN 3.6 g/dL (3.5-5.0); ALBUMIN/GLOBULIN RATIO 1.7 (0.8-2.0); ALKALINE PHOSPHATASE 72 IU/L (40-150); AMYLASE 42 U/L (25-125); ANION GAP 10.2 mmol/L (8-16); BLOOD UREA NITROGEN 11 mg/dL (7-26); BUN/CREATININE RATIO 14 (6-25); CALCIUM 7.8 mg/dL (8.4-10.2); CARBON DIOXIDE 23 mmol/L (22-29); CHLORIDE 110 mmol/L (98-107); EST GLOMERULAR FILTRATION RATE > 60 ML/MIN (60-); GLUCOSE 84 mg/dL (74-118); LIPASE 24 U/L (8-78); POTASSIUM 4.2 mmol/L (3.5-5.1); SODIUM 139 mmol/L (136-145)
[2020-05-22 06:34] LABS: CHOL/HDL RATIO 4.2 (3.0-3.6)
--- NOTE | 2020-05-22 07:30 | NUR ---
CALLED ERICK IN RADIOLOGY FOR ETA OF MRCP. ASKED IF WE COULD GET PT DONE [place] IF POSSIBLE.
[2020-05-22] MEDS ORDERED: PANTOPRAZOLE 40 MG 10ML VIAL IV SCH (09:00)
--- NOTE | 2020-05-22 09:54 | Diagnostic Imaging Report ---
MRI MRCP WO HISTORY: ^PANCREATITIS COMPARISON: None. TECHNIQUE: MRI of the abdomen with exam tailored to evaluate the biliary tree and the pancreas was performed without gadolinium contrast. Multiplanar, multisequence images, including heavily T2-weighted MRCP sequences were obtained. FINDINGS: Hepatobiliary Findings: Bile ducts: Normal in caliber with no intraluminal filling defects. No strictures or dilated intra- or extrahepatic bile ducts. Liver: Mild signal loss on opposed phased imaging compatible with mild steatosis Gallbladder: Unremarkable. Pancreas: Unremarkable. No peripancreatic edema or fluid collections. No pancreatic ductal dilation Additional Findings: Lung bases: Unremarkable. Spleen: Unremarkable Adrenals: Unremarkable Kidneys and ureters: Unremarkable. Bowel: Unremarkable. Lymph nodes: Unremarkable. Peritoneum: Trace free fluid in the pelvis, within physiologic normal limits. No peripancreatic fluid collections or any free fluid in the upper abdomen Vessels: Unremarkable Abdominal wall: Trace dependent body wall edema. Bones: Unremarkable. IMPRESSION: No gallstones, no biliary ductal dilation, and no evidence for pancreatitis on this noncontrast exam. Mild hepatic steatosis. Signed by: Gerardo Briceño MD on 05/22/2020 9:51 AM
[2020-05-22] MEDS ORDERED: LEXAPRO10 MG PO (10:15)
[2020-05-22] MEDS ORDERED: BUSPIRONE HCL5 MG PO (10:15)
== END 2020-05-22 10:25 | disposition home or self-care (01) ==
LOC: ER 21:01 → INTOOBSV 05-22 05:37 → ERHOLD 05-22 05:37
PROVIDERS: ADMIT Internal Medicine; ATTEND Internal Medicine
DX: K85.90 Acute pancreatitis without necrosis or infection, unspecified (principal); K82.9 Disease of gallbladder, unspecified; E66.9 Obesity, unspecified; Z68.30 Body mass index [BMI] 30.0-30.9, adult; Z11.59 Encounter for screening for other viral diseases
CPT/HCPCS: 36415 ×2; 74181; 76705; 80053 ×2; 80061; 81001; 82150 ×2; 83036; 83690 ×2; 84702; 85025 ×2; 99284; C9113; G0378; J0500; J7030 ×2; U0002

== ENCOUNTER 2021-09-16 18:46 | Emergency (ER) | payer OTHER ==
[~2021-09-16] VITALS: Ht 157.5 cm; Wt 74.8 kg
[~2021-09-16 18:46] MED LIST: BUSPIRONE HCL5 MG PO; LEXAPRO10 MG PO
[2021-09-16 20:33] LABS: CLARITY,URINE SL CLOUDY (CLEAR); COLOR,URINE YELLOW (YELLOW); KETONES,URINE NEGATIVE (NEGATIVE); LEUKOCYTE ESTERASE ,URINE NEGATIVE (NEGATIVE); NITRITE,URINE NEGATIVE (NEGATIVE); PROTEIN,URINE DIPSTICK NEGATIVE (NEGATIVE); URINE UROBILINOGEN 0.2 mg/dL (0.2 - 1)
[2021-09-16 20:47] LABS: BACTERIA,URINE MODERATE /HPF; EPITHELIAL CELLS,URINE MODERATE /LPF
== END 2021-09-16 22:30 | disposition left against medical advice (07) ==
LOC: ER 20:17
DX: Z53.21 Procedure and treatment not carried out due to patient leaving prior to being seen by health care provider (principal)
CPT/HCPCS: 81001; 81025

== ENCOUNTER 2022-07-25 11:37 | Emergency (ER) | payer OTHER ==
[~2022-07-25] VITALS: Ht 157.5 cm; Wt 96.2 kg
[2022-07-25] MEDS ORDERED: SODIUM CHLORIDE 0.9% 1000ML 1,000 ML IV STA (11:42)
[2022-07-25] MEDS ORDERED: ONDANSETRON HCL INJ 2MG/ML 2ML 2 MG/ML VIAL IV STA (11:42)
[2022-07-25] MEDS ORDERED: Morphine 4mg INJECTION 4 MG/ML INJ IV STA (11:42)
[2022-07-25 12:01] LABS: BASOPHILS % 0.2 % (0.0-1.0); EOSINOPHILS # (AUTO) 0.1 (0.0-0.4); EOSINOPHILS % 1.1 % (0.0-6.0); HEMATOCRIT 40.9 % (34.2-44.1); HEMOGLOBIN 12.9 g/dL (12.0-16.0); LYMPHOCYTES # (AUTO) 2.5 (1.0-3.2); LYMPHOCYTES % 26.5 % (18.0-39.1); MEAN CORPUSCULAR HEMOGLOBIN 26.8 pg (28-32); MEAN CORPUSCULAR HGB CONC 31.5 g/dL (31-35); MONOCYTES # (AUTO) 0.5 (0.2-0.8); MONOCYTES % 5.3 % (4.4-11.3); NEUTROPHILS # (AUTO) 6.3 (2.1-6.9); NEUTROPHILS % 66.6 % (38.7-80.0); PLATELET COUNT 294 x10e3/uL (140-360); RED BLOOD COUNT 4.81 x10e6/uL (3.6-5.1)
[2022-07-25 12:28] LABS: ALANINE AMINOTRANSFERASE 20 IU/L (0-55); ALBUMIN 4.2 g/dL (3.5-5.0); ALBUMIN/GLOBULIN RATIO 1.4 (0.8-2.0); ALKALINE PHOSPHATASE 96 IU/L (40-150); ANION GAP 14.9 mmol/L (8-16); BLOOD UREA NITROGEN 12 mg/dL (7-26); BUN/CREATININE RATIO 12 (6-25); CALCIUM 9.2 mg/dL (8.4-10.2); CARBON DIOXIDE 25 mmol/L (22-29); CHLORIDE 104 mmol/L (98-107); GLUCOSE 106 mg/dL (74-118); LIPASE 23 U/L (8-78); POTASSIUM 3.9 mmol/L (3.5-5.1); SODIUM 140 mmol/L (136-145)
[2022-07-25] MEDS ORDERED: Morphine 4mg INJECTION 4 MG/ML INJ IV ONE (13:45)
[2022-07-25] MEDS ORDERED: IOPAMIDOL 370 MG/ML 100 ML INFUS..BTL INJ ONE (14:37)
[2022-07-25 14:52] LABS: CLARITY,URINE SL CLOUDY (CLEAR); COLOR,URINE YELLOW (YELLOW); KETONES,URINE NEGATIVE (NEGATIVE); LEUKOCYTE ESTERASE ,URINE NEGATIVE (NEGATIVE); NITRITE,URINE NEGATIVE (NEGATIVE); PROTEIN,URINE DIPSTICK NEGATIVE (NEGATIVE)
[2022-07-25 14:53] LABS: URINE UROBILINOGEN 0.2 mg/dL (0.2 - 1)
[2022-07-25 15:02] LABS: BACTERIA,URINE RARE /HPF; EPITHELIAL CELLS,URINE RARE /LPF; RBC,URINE 0-5 /HPF (0-5)
[2022-07-25] MEDS ORDERED: IBUPROFEN800 MG PO (15:43)
[2022-07-25 15:46] VITALS: BP 140/86
== END 2022-07-25 15:48 | disposition home or self-care (01) ==
LOC: ER 11:50
DX: R11.2 Nausea with vomiting, unspecified (principal); N13.2 Hydronephrosis with renal and ureteral calculous obstruction; R10.11 Right upper quadrant pain; F32.A Depression, unspecified
CPT/HCPCS: 36415; 74177; 80053; 81001; 83690; 84702; 85025; 99284; J2270; J2405; J7030; Q9967

== ENCOUNTER 2022-10-28 10:24 | Emergency (ER) | payer OTHER ==
[~2022-10-28] VITALS: Ht 157.5 cm; Wt 96.2 kg
[~2022-10-28 10:24] MED LIST changes: +IBUPROFEN800 MG PO
[2022-10-28 11:19] LABS: CLARITY,URINE CLEAR (CLEAR); COLOR,URINE YELLOW (YELLOW); KETONES,URINE NEGATIVE (NEGATIVE); LEUKOCYTE ESTERASE ,URINE NEGATIVE (NEGATIVE); NITRITE,URINE NEGATIVE (NEGATIVE); PROTEIN,URINE DIPSTICK NEGATIVE (NEGATIVE); URINE UROBILINOGEN 0.2 mg/dL (0.2 - 1)
[2022-10-28 11:27] LABS: BACTERIA,URINE FEW /HPF; EPITHELIAL CELLS,URINE MODERATE /LPF; MUCUS,URINE RARE (RARE); RBC,URINE 0-5 /HPF (0-5); WBC,URINE (MAN) 0-5 /HPF (0-5)
[2022-10-28 11:55] LABS: BASOPHILS % 0.4 % (0.0-1.0); EOSINOPHILS # (AUTO) 0.1 (0.0-0.4); EOSINOPHILS % 1.7 % (0.0-6.0); HEMATOCRIT 42.8 % (34.2-44.1); LYMPHOCYTES # (AUTO) 2.6 (1.0-3.2); LYMPHOCYTES % 31.1 % (18.0-39.1); MEAN CORPUSCULAR HEMOGLOBIN 27.9 pg (28-32); MEAN CORPUSCULAR HGB CONC 32.7 g/dL (31-35); MEAN CORPUSCULAR VOLUME 85.3 fL (81-99); MONOCYTES # (AUTO) 0.4 (0.2-0.8); MONOCYTES % 5.2 % (4.4-11.3); NEUTROPHILS # (AUTO) 5.1 (2.1-6.9); NEUTROPHILS % 61.4 % (38.7-80.0); PLATELET COUNT 299 x10e3/uL (140-360); RED BLOOD COUNT 5.02 x10e6/uL (3.6-5.1); RED CELL DISTRIBUTION WIDTH 13.8 % (11.7-14.4)
[2022-10-28 12:17] LABS: ALBUMIN 3.9 g/dL (3.5-5.0); ALBUMIN/GLOBULIN RATIO 1.1 (0.8-2.0); ANION GAP 14.6 mmol/L (8-16); CALCIUM 9.4 mg/dL (8.4-10.2); CREATININE, SERUM 0.87 mg/dL (0.57-1.11); POTASSIUM 4.6 mmol/L (3.5-5.1)
[2022-10-28] MEDS ORDERED: KETOROLAC TROMETHAMINE 30 MG/ML VIAL IV STA (12:24)
[2022-10-28] MEDS ORDERED: SODIUM CHLORIDE 0.9% 1000ML 1,000 ML IV ONE (12:30)
[2022-10-28] MEDS ORDERED: IOPAMIDOL 370 MG/ML 100 ML INFUS..BTL INJ ONE (12:38)
[2022-10-28 15:42] VITALS: BP 125/69
== END 2022-10-28 15:37 | disposition home or self-care (01) ==
LOC: ER 10:28
DX: R50.9 Fever, unspecified (principal); R10.32 Left lower quadrant pain; R19.7 Diarrhea, unspecified; R11.0 Nausea; F32.A Depression, unspecified; Z87.442 Personal history of urinary calculi; Z20.822 Contact with and (suspected) exposure to COVID-19
CPT/HCPCS: 36415; 74177; 80053; 81001; 81025; 83690; 85025; 99284; J1885; J7030; Q9967; U0002

== ENCOUNTER 2023-01-21 14:39 | Emergency (ER) | payer OTHER ==
[~2023-01-21] VITALS: Ht 157.5 cm; Wt 96.2 kg
[2023-01-21 14:45] VITALS: O2SAT 100
[2023-01-21] MEDS ORDERED: ONDANSETRON HCL INJ 2MG/ML 2ML 2 MG/ML VIAL IV STA (15:10)
[2023-01-21 16:08] LABS: BASOPHILS % 0.4 % (0.0-1.0); EOSINOPHILS # (AUTO) 0.1 (0.0-0.4); EOSINOPHILS % 0.7 % (0.0-6.0); HEMATOCRIT 43.3 % (34.2-44.1); HEMOGLOBIN 14.3 g/dL (12.0-16.0); LYMPHOCYTES # (AUTO) 3.9 (1.0-3.2); LYMPHOCYTES % 37.5 % (18.0-39.1); MEAN CORPUSCULAR HEMOGLOBIN 28.4 pg (28-32); MEAN CORPUSCULAR VOLUME 85.9 fL (81-99); MONOCYTES # (AUTO) 0.5 (0.2-0.8); MONOCYTES % 4.8 % (4.4-11.3); NEUTROPHILS # (AUTO) 5.8 (2.1-6.9); NEUTROPHILS % 56.4 % (38.7-80.0); PLATELET COUNT 283 x10e3/uL (140-360); RED BLOOD COUNT 5.04 x10e6/uL (3.6-5.1)
[2023-01-21 16:11] LABS: CLARITY,URINE SL CLOUDY (CLEAR); COLOR,URINE YELLOW (YELLOW); LEUKOCYTE ESTERASE ,URINE NEGATIVE (NEGATIVE); NITRITE,URINE NEGATIVE (NEGATIVE); PROTEIN,URINE DIPSTICK NEGATIVE (NEGATIVE)
[2023-01-21 16:12] LABS: KETONES,URINE NEGATIVE (NEGATIVE); URINE UROBILINOGEN 0.2 mg/dL (0.2 - 1)
[2023-01-21 16:22] LABS: AMORPHOUS SEDIMENT,URINE MODERATE (FEW); BACTERIA,URINE MANY /HPF; EPITHELIAL CELLS,URINE MODERATE /LPF; WBC,URINE (MAN) 0-5 /HPF (0-5)
[2023-01-21 16:34] LABS: ALBUMIN 4.3 g/dL (3.5-5.0); ALBUMIN/GLOBULIN RATIO 1.3 (0.8-2.0); ANION GAP 14.2 mmol/L (8-16); CALCIUM 9.5 mg/dL (8.4-10.2); CREATININE, SERUM 0.94 mg/dL (0.57-1.11); POTASSIUM 4.2 mmol/L (3.5-5.1)
[2023-01-21] MEDS ORDERED: DICYCLOMINE HCL20 MG PO (17:55)
== END 2023-01-21 18:04 | disposition home or self-care (01) ==
LOC: ER 15:59
DX: R10.11 Right upper quadrant pain (principal); R11.2 Nausea with vomiting, unspecified; F32.A Depression, unspecified; Z87.442 Personal history of urinary calculi
CPT/HCPCS: 36415; 74176; 80053; 81001; 83690; 84702; 85025; 99284; J2405

== ENCOUNTER 2024-12-03 21:56 | Emergency (ER) | payer OTHER ==
[~2024-12-03] VITALS: Ht 157.5 cm; Wt 99.8 kg
[~2024-12-03 21:56] MED LIST changes: +DICYCLOMINE HCL20 MG PO; +MECLIZINE HCL12.5 MG PO
[2024-12-03 21:59] VITALS: PULSE 73; RESP 16; TEMP 98.5
[2024-12-03 22:48] LABS: CORONAVIRUS COVID-19 AG NEGATIVE (NEGATIVE); INFLUENZA A AG NEGATIVE (NEGATIVE); INFLUENZA B AG NEGATIVE (NEGATIVE); STREPTOCOCCUS GRP A ANTIGEN NEGATIVE (NEGATIVE)
[2024-12-03] MEDS ORDERED: AMOX TR-K400 MG/5 M PO (23:18)
[2024-12-03 23:53] VITALS: BP 131/85; PULSE 76; RESP 19; TEMP 98.6; O2SAT 98
== END 2024-12-03 23:23 | disposition home or self-care (01) ==
LOC: ER 22:09
DX: R07.0 Pain in throat (principal); J03.91 Acute recurrent tonsillitis, unspecified; Z11.52 Encounter for screening for COVID-19
CPT/HCPCS: 83518; 87070; 99283